=== PATIENT | female | born 1940 | race Caucasian/White ===

== ENCOUNTER → 2016-09-01 | Outpatient (CLI) | payer MEDICARE ==
[~2016-09-01] MED LIST: ACCU CHEK; ADVAIR 2501 DISK W/D PO; AMARYL1 MG PO; AMLODIPINE BESYL5 MG PO; CARVEDILOL6.25 MG PO; COUMADIN5 MG PO; LIPITOR80 MG PO; LOSARTAN POTASS50 MG PO; NEURONTIN100 MG PO; OMEPRAZOLE40 M1 PO; PAMELOR25 M1 PO; PERCOCET 5-3251 TAB PO; PREDNISONE5 MG PO; PROAIR RESPICL90 MCG INH; PROVENTIL INH0.5 ML NEB; SERTRALINE HCL50 M1 PO; SYNTHROID125 PO; VITAMIN B122500 MCG PO; VITAMIN D2000 UNIT PO; WELCHOL625 M1 PO; ZYLOPRIM100 MG PO
--- NOTE | ~2016-09-01 | EKG ---
PATIENT: CAESAR TRINIDAD UNIT #: [id number] Ventricular Rate: 87 BPM Atrial Rate: 87 BPM P-R Interval: 186 ms QRS Duration: 84 ms Q-T Interval: 346 ms QTC Calculation(Bezet): 416 ms P Orlando: 32 degrees Calculated R Orlando: -22 degrees Calculated T Orlando: 45 degrees Diagnosis Line: Normal sinus rhythm Diagnosis Line: Normal ECG Diagnosis Line: No previous ECGs available Diagnosis Line: Confirmed by FRANK JULIAN MD ([id number]) on 09/01/2016 Diagnosis Line: 5:48:03 PM INTERPRETING MD: IESHA MANDEL
--- NOTE | ~2016-09-01 | CO ---
Unit #: [id number] #: [id number] Patient: CAESAR TRINIDAD [id number] [address] [place], [place] [address] [id number] MR#: [id number] NAME: CAESAR TRINIDAD ROOM: Age: 75 Sex: F Admission Date: 09/01/2016 : 1940 Attending Physician: William Reinoso M.D. Primary Care Physician: Damion Harding Jr., M.D. CONSULTATION REPORT REASON FOR CONSULTATION Preprocedure medical evaluation prior to left reverse total shoulder arthroplasty scheduled by Dr. William Reinoso for 09/08/2016. HISTORY OF PRESENT ILLNESS The patient is a 75-year-old female who presents to preprocedural screening for the reasons indicated above. She complains of left shoulder pain but has no other complaints at the time of this interview. She denies chest, arm, neck, jaw, pain or pressure, shortness of air, dyspnea on exertion, orthopnea, and paroxysmal nocturnal dyspnea. She does sleep with her head elevated on pillows secondary to a history of brain surgery, in order to keep "fluid" from building up. She has no syncope, presyncope, lightheadedness. She states that she does sometimes experience dizziness intermittently but not associated with any particular factors. She denies palpitations. She denies history of myocardial infarction, congestive heart failure, CVA, TIA, diabetes mellitus on insulin, and kidney disease. She is able to climb a flight of stairs without chest pain, although she does experience mild shortness of air. She has no other complaints at the time of this interview. PAST MEDICAL HISTORY 1. Osteoarthritis. 2. Morbid obesity. BMI 36. 3. Risk factors for obstructive sleep apnea. 4. History of colon cancer. 5. History of pituitary tumor. 6. History of Boeck sarcoidism. 7. Type 2 diabetes mellitus, noninsulin dependent. 8. Anxiety and depression. 9. History of dysphagia established with Dr. Solis. 10. Hypothyroidism. 11. History of DVT in bilateral lower extremities, neither associated with a postop course. 12. Sciatica. 13. Restless leg syndrome. 14. History of pancreatitis. 15. History of kidney stones. PAST SURGICAL HISTORY 1. Right reverse shoulder replacement. 2. Colon resection for cancer. 3. Hysterectomy. 4. Lap cholecystectomy. 5. Colonoscopy with polyp removal. Unit #: [id number] #: [id number] Patient: CAESAR TRINIDAD 6. Brain surgery x2 for pituitary gland tumor. 7. Surgery for kidney stones removal. 8. Surgery for Boeck sarcoidism. 9. Right cataract extraction. 10. Bilateral ear tube placement. 11. Patient denies a personal and family history of complications to anesthesia. ALLERGIES Penicillin causes a rash, morphine hallucinations, hydrocodone temporary paralysis from the neck down. CURRENT MEDICATIONS 1. Advair 250/50 one inhalation p.o. b.i.d. p.r.n. shortness of air. 2. Proventil mini-neb two to three times a day p.r.n. shortness of air. 3. Zyloprim 100 mg p.o. b.i.d. 4. Amlodipine besylate 5 mg p.o. every morning. 5. Lipitor 80 mg p.o. every morning. 6. Carvedilol 6.25 mg p.o. b.i.d. 7. Neurontin 200 mg p.o. b.i.d. 8. Amaryl 1 mg p.o. every morning. 9. Synthroid 0.125 mg p.o. every morning. 10. Losartan potassium 50 mg p.o. every morning. 11. Pamelor 25 mg p.o. every morning. 12. Omeprazole 40 mg p.o. b.i.d. 13. Prednisone 5 mg p.o. twice daily, 5 mg in the morning and 2.5 mg at night. 14. ProAir RespiClick two puffs inhaled q.4 hours as needed for shortness of air. 15. Sertraline HCL 50 mg p.o. every morning. 16. Coumadin 5 mg p.o. daily. 17. Welchol 1 tab p.o. b.i.d. 18. Vitamin B12 one tab p.o. b.i.d. 19. Vitamin D 2000 units p.o. every morning. SOCIAL HISTORY Denies tobacco use, ETOH use, and illicit drug use. REVIEW OF SYSTEMS Ten point review of systems is conducted and negative except as indicated under history of present illness above. PHYSICAL EXAMINATION GENERAL: 75-year-old, obese, female, awake, alert, in no acute distress. VITAL SIGNS: Temperature 96.5, thyroid 97, respiratory rate 16, blood pressure 152/103 with recheck 143/91. Oxygen saturation 97% on room air. HEENT: Atraumatic and normocephalic. Sclerae anicteric. No discharge from eyes, ears, or nares. LUNGS: No preauricular, postauricular, tonsillar, submental, anterior, or posterior cervical adenopathy. ENDOCRINE: No thyromegaly, thyroid nodules, or tenderness. RESPIRATORY: Clear to auscultation all silva bilaterally without wheezes, rhonchi, or rales. CARDIOVASCULAR: S1 and S2, regular rate and rhythm, without murmur or rub. GASTROINTESTINAL: Obese, bowel sounds positive x4. Soft, nontender, and nondistended. EXTREMITIES: No edema, cyanosis, or clubbing. Unit #: [id number] #: [id number] Patient: CAESAR TRINIADD MUSCULOSKELETAL: Strength 5/5 all extremities bilaterally to flexion and extension. NEUROLOGIC: Alert and oriented x3. Speech clear. Cranial nerves II-XII grossly intact. Moves all extremities, follows commands. DIAGNOSTIC STUDIES LABORATORY STUDIES: WBC 8.0, hemoglobin 13.7, hematocrit 42.3, and platelet count 172,000. Sodium 139, potassium 4.3, chloride 110, CO2 22, glucose 149, BUN 20, creatinine 1.0, calcium 9.9, AST 45, ALT 62, alkaline phosphatase 62, bilirubin total 0.6, total protein 6.5, and albumin 3.9. PT 19.8, INR 1.8. Urinalysis - leukocyte esterase 2+, nitrate negative, protein trace, WBCs 200 to 300, bacteria 1+, and squamous cells moderate. Urine culture and sensitivity pending at this time, possible contaminated specimen. TSH and free T4 pending at this time. Type A positive antibody screen negative. MRSA nasal swab report pending at this time. IMAGING STUDIES: Two view chest x-ray are pending at this time. CARDIOLOGY STUDIES: Twelve lead EKG - normal sinus rhythm, normal ECG. (1) report pending at this time. IMPRESSION The patient is a 75-year-old female who presents to preprocedural screening for: 1. Preoperative medical evaluation prior to left reversal total shoulder arthroplasty as scheduled above. Patient's Powers revised cardiac risk index based on information known today and the patient's medical history is 0.4%. This represents the patient's perioperative risk of cardiac , fatal or nonfatal myocardial infarction, cardiopulmonary arrest, arrhythmia and/or pulmonary edema. This has been discussed in detail with the patient. She wishes to proceed with surgery as scheduled at this time. 2. Morbid obesity, BMI 36. 3. Risk factors for obstructive sleep apnea per STOP-BANG protocol. Patient will be placed on SHITAL protocol postoperatively. 4. History of colon cancer, status post colon resection. 5. History of pituitary tumor. 6. History of Boeck sarcoidism. 7. Diabetes mellitus 2 on oral hypoglycemics. Will monitor Accu-Cheks and place on CCD and sliding scale insulin protocol. Will resume home meds based on hospital policy and patient's oral intake. 8. Anxiety and depression stable. Continue home dose of Zoloft. 9. History of dysphagia. Again patient is established with Dr. Solis. She denies coughing, and chocking with food or fluids. A bedside swallow will be performed upon admission. 10. Hypothyroidism, continue current dose of Synthroid and will check TSH and free T4 in lab today. Adjustments pending results. 11. History of DVT in both lower extremities. Patient states neither of these was associated with the postop course. DVT prophylaxis perioperatively will be per order of Dr. Reinoso. 12. Sciatica. 13. Restless leg syndrome. 14. Mild elevation of liver function test. 15. Pyuria/bacteria. Patient is completely asymptomatic. Will await urine culture and sensitivity results and call the patient results. Will contact the patient and call prescription to patient's pharmacy if indicated based on culture and sensitivity report. Unit #: [id number] #: [id number] Patient: CAESAR TRINIDAD Thank you for allowing us to participate in the care of this patient. Will gladly follow patient for postop medical management pending order of Dr. Reinoso. Dictated by... Darrel Montaño M.D. RLC/ts TD: 09/02/2016 08:22 JOB #: [id number] CONSULTATION REPORT X Monica Richter APRN CONSULTATION REPORT
[2016-09-01 13:47] LABS: HEMATOCRIT 42.3 % (35.0-45.0); HEMOGLOBIN 13.7 gm/dL (12.0-16.0); MEAN CELL VOLUME 89.5 FL (83-96); MEAN CORPUSCULAR HGB CONC 32.4 g/dL (30-36); MEAN PLATELET VOLUME 7.8 FL (6.5-11.5); RED BLOOD COUNT 4.72 X10e (3.90-5.30); RED CELL DISTRIBUTION WIDTH 17.6 % (11.0-15.5)
[2016-09-01 14:01] LABS: INR 1.8; PROTHROMBIN TIME (PATIENT) 19.8 SECONDS (9.6-11.5)
[2016-09-01 14:30] LABS: URINE APPEARANCE CLOUDY; URINE BILIRUBIN NEG (NEG); URINE BLOOD TRACE (NEG); URINE COLOR DK YELLOW; URINE GLUCOSE NEG (NEG); URINE KETONE TRACE (NEG); URINE LEUKOCYTE ESTERASE 2+ (NEG); URINE NITRATE NEG (NEG); URINE PROTEIN TRACE (NEG); URINE SPECIFIC GRAVITY 1.024 (1.003-1.035)
[2016-09-01 14:31] LABS: URINE SOURCE CLEAN CATCH
[2016-09-01 14:33] LABS: CULTURE INDICATED? YES; URINE BACTERIA AUWI 1+ (NEGATIVE); URINE SQUAMOUS EPITHELIAL CELL MOD /[HPF]; UWBCS1 AUWI 200-300 (0-5)
[2016-09-01 14:43] LABS: URINE CRYSTALS CALCIUM OXALATE /[HPF]
[2016-09-01 14:44] LABS: ALBUMIN SERUM 3.9 g/dL (3.5-5.0); BILIRUBIN,TOTAL 0.6 mg/dL (0.2-2.0); CALCIUM SERUM 9.9 mg/dL (8.4-10.2); GLOM FILT RATE Estimated 57.4 mL/min (>60); POTASSIUM 4.3 mmol/L (3.5-5.1); PROTEIN TOTAL SERUM 6.5 g/dL (6.0-8.3)
[2016-09-01 16:31] LABS: THYROID STIMULATING HORMONE 1.95 uIU/ml (0.34-5.60)
[2016-09-01 16:38] LABS: FREE THYROXIN (T4) 1.12 ng/dL (0.58-1.64)
== END | disposition home or self-care (01) ==
LOC: CAMB 13:14
PROVIDERS: Orthopaedic Surgery
DX: Z01.818 Encounter for other preprocedural examination (principal); M19.012 Primary osteoarthritis, left shoulder; I10 Essential (primary) hypertension; E11.9 Type 2 diabetes mellitus without complications; E66.01 Morbid (severe) obesity due to excess calories; Z88.0 Allergy status to penicillin; Z88.5 Allergy status to narcotic agent; Z88.8 Allergy status to other drugs, medicaments and biological substances
CPT/HCPCS: 36415; 71020; 73030; 80053; 81003; 84439; 84443; 85027; 85610; 86850; 86900; 86901; 87070; 87086; 87088; 87186; 93005

== ENCOUNTER 2016-09-08 05:43 | Inpatient (IN) | payer MEDICARE ==
--- NOTE | ~2016-09-08 | CR229 ---
[facility] A Service of [facility] & [facility] RADIOLOGY TEXT RESULTS PATIENT: CAESAR TRINIDAD LOCATION: [facility] : 40 UNIT #: [id number] AGE: [address]: William Reinoso MD SEX: F ORDER DR: [id number] [facility] [address] [place], [place] [address] [id number] MR#: [id number] Acc #: [id number] NAME: CAESAR TRINIDAD : 1940 SEX: F STUDY DATE/TIME: 09/01/2016 16:06 UNIT: [facility] ROOM: STUDY DESCRIPTION: CR Shoulder Min 2 View Lt Attending Physician: William Reinoso M.D. Ordering Physician: William Reinoso M.D. Primary Care Physician: Justo Messina M.D. MEDICAL IMAGING REPORT This report is preliminary unless electronic signature is present EXAM Left shoulder, 3 views. DATE OF EXAM 09/01/2016 INDICATION 75-year-old female with preop left shoulder arthroplasty. COMPARISON No comparisons. FINDINGS There is narrowing of the subacromial space and also narrowing of the AC joint. No fracture or dislocation. IMPRESSION Degenerative changes as described. Dictated by... Álvaro Maxwell M.D. THIS IS AN ELECTRONICALLY VERIFIED REPORT Álvaro Maxwell M.D. at 09/02/2016 5:07 PM RADHA/tahmina TD: 09/01/2016 23:42 JOB #: [id number] MEDICAL IMAGING REPORT COPY
--- NOTE | ~2016-09-08 | CR229 ---
[facility] A Service of [facility] RADIOLOGY TEXT RESULTS PATIENT: CAESAR TRINIDAD LOCATION: [facility] [id number] : 40 UNIT #: [id number] AGE: [address]: William Reinoso MD SEX: F ORDER DR: [id number] [facility] [address] [place], [place] [address] [id number] I MR#: [id number] Acc #: [id number] NAME: CAESAR TRINIDAD : 1940 SEX: F STUDY DATE/TIME: 09/08/2016 11:12 UNIT: [facility] ROOM: [facility] STUDY DESCRIPTION: CR Shoulder Min 2 View Lt Attending Physician: William Reinoso M.D. Ordering Physician: William Reinoso M.D. Primary Care Physician: Generic Doctor Not In System MEDICAL IMAGING REPORT This report is preliminary unless electronic signature is present EXAM Left shoulder 2 views HISTORY Status post left shoulder total arthroplasty. FINDINGS Two views show changes of left shoulder total arthroplasty. Dictated by... Bimal Johnson M.D. THIS IS AN ELECTRONICALLY VERIFIED REPORT Bmial Johnson M.D. at 09/09/2016 4:13 PM DANICA/alber TD: 09/08/2016 15:58 JOB #: [id number] MEDICAL IMAGING REPORT COPY
--- NOTE | ~2016-09-08 | DS ---
Unit #: [id number] #: [id number] Patient: CAESAR TRINIDAD [id number] [facility]. [place], [place] [address] [id number] I MR#: [id number] NAME: CAESAR TRINIDAD ROOM: [facility] Age: 75 Sex: F Admission Date: 09/08/2016 : 1940 Discharge Date: Attending Physician: William Reinoso M.D. DISCHARGE SUMMARY PROCEDURES IN HOSPITAL Left total shoulder. HOSPITAL COURSE The patient was admitted on 09/08/2016, taken to the operating room, where she underwent a left total shoulder replacement by Dr. Reinoso. Postoperatively, the first day, she had a fair amount of pain and was unable to move well this morning. She states that she feels much better and soreness is much improved. She is on Percocet for pain, but she has not ambulated much yet. We will get her up with physical therapy this morning and if she does well with ambulating, she can be discharged home. She will follow up with Dr. Reinoso in 2 weeks in the office. Her condition on discharge is improved. Her medications are her routine home medicines plus her Percocet for pain. ADDENDUM Her hemoglobin on the day of discharge is 10.5. Dictated by... Collins Davis/joyce TD: 09/10/2016 11:21 JOB #: [id number] DISCHARGE SUMMARY X Giorgio Dunn MD X DISCHARGE SUMMARY
--- NOTE | ~2016-09-08 | CR63 ---
[facility] A Service of [facility] & [facility] RADIOLOGY TEXT RESULTS PATIENT: CAESAR TRINIDAD LOCATION: [facility] : 40 UNIT #: [id number] AGE: [address]: William Reinoso MD SEX: F ORDER DR: [id number] [facility] [address] [place] [address] [place], [place] [address] [id number] P MR#: [id number] Acc #: [id number] NAME: CAESAR TRINIDAD : 1940 SEX: F STUDY DATE/TIME: 09/01/2016 16:07 UNIT: [facility] ROOM: STUDY DESCRIPTION: CR Chest 2 View Attending Physician: William Reinoso M.D. Ordering Physician: William Reinoso M.D. Primary Care Physician: Justo Messina M.D. MEDICAL IMAGING REPORT This report is preliminary unless electronic signature is present EXAM PA and lateral chest. DATE OF EXAM 09/01/2016 INDICATIONS 75-year-old female preop chest x-ray for left shoulder surgery. COMPARISON No comparisons. FINDINGS Lungs well expanded. No acute infiltrate. Heart size upper normal. Atherosclerotic calcification of the aorta. Right shoulder arthroplasty. IMPRESSION No active disease. Dictated by... Álvaro Maxwell M.D. THIS IS AN ELECTRONICALLY VERIFIED REPORT Álvaro Maxwell M.D. at 09/02/2016 5:07 PM RADHA/tahmina TD: 09/01/2016 23:37 JOB #: [id number] MEDICAL IMAGING REPORT COPY
--- NOTE | ~2016-09-08 | OR ---
Unit #: [id number] #: [id number] Patient: CAESAR TRINIDAD [id number] [facility]. [place], [place] [address] [id number] I MR#: [id number] NAME: CAESAR TRINIDAD ROOM: [facility] Date of Procedure: 09/08/2016 Admission Date: 09/08/2016 Surgeon: William Reinoso M.D. : 1940 Attending Physician: William Reinoso M.D. OPERATIVE REPORT PREOPERATIVE DIAGNOSIS Left shoulder rotator cuff arthropathy. POSTOPERATIVE DIAGNOSIS Left shoulder rotator cuff arthropathy. PROCEDURE PERFORMED Left reverse total shoulder arthroplasty. VOCAL TEACHER Jacob Nation CFA. ANESTHESIA General endotracheal. COMPLICATIONS None. SPECIMENS None. DRAINS None. SURGICAL IMPLANTS 1. Jordyn reverse total shoulder arthroplasty system. Size 10 humeral stem with Palacos R+G cement. 2. Standard 15 mm base plate with 36 mm glenosphere. 3. +3 mm polyethylene insert. INDICATIONS FOR PROCEDURE Ms. Trinidad is a 75-year-old female with left shoulder rotator cuff arthropathy. 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 The patient failed to respond to conservative treatment. She has a history of a right reverse total shoulder arthroplasty. She has done well with this. She is interested in the same on the left side. Due to failure of conservative treatment and degree of changes on x-ray and clinical exam, it was felt she would benefit from a reverse total shoulder arthroplasty. Risks, benefits, and alternatives of surgery were discussed with the patient. Informed consent was obtained. Risks include, but not limited to, infection, bleeding, nerve injury, blood clots, risks associated with anesthesia, need for further surgery, and possibly . Unit #: [id number] #: [id number] Patient: CAESAR TRINIDAD DESCRIPTION OF PROCEDURE On 09/08/2016, the patient was seen in the preoperative holding area, where her surgical site was marked. Preoperative antibiotics were received. H and P and consent updated. Preoperative block was performed. The patient was subsequently taken to the operating room and placed on the operating room table, provided general anesthesia. She was then carefully moved into the beach chair position. Left upper extremity was prepped and draped in typical sterile fashion. Time-out was performed confirming the correct surgical site and procedure. Standard deltopectoral approach was performed for the left shoulder. Cephalic vein was taken with the deltoid muscle. Clavipectoral fascia released. Retractors were placed. The subscapularis was released off the lesser tuberosity and tacked. Biceps tenotomy was performed. Full-thickness cartilage loss noted and the shoulder was externally rotated and dislocated. Also of note, full-thickness superior rotator cuff tear noted with high-riding humerus. At this point, starting reamer was placed down the canal of the humerus. This was sequentially taken up to 11 mm. Careful attention to eversion noted. The humeral head cut was made. The conical reamer was then used and a trial was placed. Retractors were placed around the glenoid and exposure noted. The cartilage was worn down as well. The labrum was excised. Starting pin placed with 10-degree superior angulation, so that there would be a 10-degree inferior tilt of the baseplate. The reamer placed over this. This was taken down to bleeding trabecular bone. The baseplate was placed. Two screws were placed with excellent purchase. Locking caps placed. The baseplate was stable. Next, the glenosphere was placed in standard fashion. It was checked circumferentially and noted to be locked. At this point, the shoulder again was externally rotated and the trial was placed. It was reduced. It was noted to be stable. At this point, the final implant was placed. The canal was prepared for cement. Restrictor placed as brush followed by irrigated and suction dried. Cement mixed on the back table and injected into the canal. The stem was placed with careful attention to retroversion. Excess cement removed. After 12 minutes, the cement had hardened. The 0 mm insert was placed and the shoulder was reduced again. This was then increased to a +3 mm. This was felt to be more stable and provided full range of motion. Appropriate tension on the conjoined tendon. The final poly was placed and malleted into position. It was stable. The subscapularis was then repaired back to the tuberosity through a hole in the stem. It was tied down. 3 L normal saline with bacitracin pulsed through the wound. Hemostasis was noted. Deltopectoral interval repaired with 0 Vicryl, followed by 2-0 Vicryl for subcutaneous tissues and a 3-0 Monocryl subcuticular stitch for skin. Dermabond, Telfa, and Tegaderm were placed. A sling immobilizer was placed. The patient was subsequently awakened from general anesthesia in stable condition and taken to PACU postoperatively. POSTOPERATIVE PLAN The patient will be admitted overnight. She will be on 24-hour antibiotic protocol. She will be on Lovenox while in the hospital. Restarted on her Coumadin. No complications were encountered during the surgical procedure. Dictated by... William Reinoso M.D. PANCHITO/joyce Unit #: [id number] #: [id number] Patient: CAESAR TRINIDAD TD: 09/09/2016 20:51 JOB #: [id number] OPERATIVE REPORT X X PROCEDURE OPERATIVE NOTE
[~2016-09-08 05:43] MED LIST changes: -ACCU CHEK; -PERCOCET 5-3251 TAB PO
[2016-09-08] MEDS ORDERED: WELCHOL625 M1 PO (06:25)
[2016-09-08 07:15] LABS: URINE APPEARANCE TURBID; URINE BILIRUBIN NEG (NEG); URINE BLOOD 1+ (NEG); URINE COLOR YELLOW; URINE GLUCOSE NEG (NEG); URINE KETONE TRACE (NEG); URINE LEUKOCYTE ESTERASE 3+ (NEG); URINE NITRATE NEG (NEG); URINE PROTEIN TRACE (NEG); URINE SPECIFIC GRAVITY 1.026 (1.003-1.035); URINE UROBILINOGEN 0.2 MG/DL (NEG)
[2016-09-08 07:17] LABS: CULTURE INDICATED? YES; URINE BACTERIA AUWI NEG (NEGATIVE); URINE SQUAMOUS EPITHELIAL CELL MOD /[HPF]; UWBCS1 AUWI INNUM (0-5)
[2016-09-08 07:25] LABS: U HYALINE CASTS AUWI 0-2 /[LPF]; URINE CRYSTALS CALCIUM OXALATE /[HPF]
[2016-09-08 07:27] LABS: INR 1.2; PROTHROMBIN TIME (PATIENT) 12.7 SECONDS (9.6-11.5)
[2016-09-09 03:06] LABS: HEMATOCRIT 32.8 % (35.0-45.0); HEMOGLOBIN 10.6 gm/dL (12.0-16.0); MEAN CELL VOLUME 91.3 FL (83-96); MEAN CORPUSCULAR HEMOGLOBIN 29.7 PG (28-34); MEAN CORPUSCULAR HGB CONC 32.5 g/dL (30-36); MEAN PLATELET VOLUME 8.3 FL (6.5-11.5); RED BLOOD COUNT 3.59 X10e (3.90-5.30); RED CELL DISTRIBUTION WIDTH 16.9 % (11.0-15.5); WHITE BLOOD COUNT 9.6 X10e3 (4.0-10.5)
[2016-09-09 03:20] LABS: INR 1.2; PROTHROMBIN TIME (PATIENT) 12.6 SECONDS (9.6-11.5)
[2016-09-09 03:32] LABS: BLOOD UREA NITROGEN 27 mg/dL (9-23); CALCIUM SERUM 8.9 mg/dL (8.4-10.2); CARBON DIOXIDE 22 mmol/L (22-31); CHLORIDE 108 mmol/L (100-111); CREATININE SERUM 0.9 mg/dL (0.6-1.4); GLOM FILT RATE Estimated ABOVE60 mL/min (>60); GLUCOSE FASTING 138 mg/dL (70-110); POTASSIUM 4.1 mmol/L (3.5-5.1); SODIUM 135 mmol/L (135-145)
[2016-09-10 03:44] LABS: HEMATOCRIT 31.8 % (35.0-45.0); HEMOGLOBIN 10.5 gm/dL (12.0-16.0); MEAN CELL VOLUME 90.2 FL (83-96); MEAN CORPUSCULAR HEMOGLOBIN 29.7 PG (28-34); MEAN PLATELET VOLUME 7.9 FL (6.5-11.5); RED BLOOD COUNT 3.53 X10e (3.90-5.30); RED CELL DISTRIBUTION WIDTH 17.3 % (11.0-15.5); WHITE BLOOD COUNT 8.8 X10e3 (4.0-10.5)
[2016-09-10 03:58] LABS: INR 1.8
[2016-09-10 04:05] LABS: PROTHROMBIN TIME (PATIENT) 19.8 SECONDS (9.6-11.5)
[2016-09-10 04:19] LABS: BLOOD UREA NITROGEN 19 mg/dL (9-23); BUN/CREATININE RATIO 23.75; CALCIUM SERUM 9.6 mg/dL (8.4-10.2); CARBON DIOXIDE 26 mmol/L (22-31); CHLORIDE 106 mmol/L (100-111); CREATININE SERUM 0.8 mg/dL (0.6-1.4); GLOM FILT RATE Estimated ABOVE60 mL/min (>60); GLUCOSE FASTING 133 mg/dL (70-110); POTASSIUM 4.4 mmol/L (3.5-5.1); SODIUM 133 mmol/L (135-145)
[2016-09-10] MEDS ORDERED: PERCOCET 5-3251 TAB PO (12:51)
[2016-09-10] MEDS ORDERED: ACCU CHEK (12:54)
== END 2016-09-10 19:20 | disposition home or self-care (01) | DRG 483 ==
LOC: CSUR 05:43 → CPACUOF 10:00 → C4B 12:13
PROVIDERS: Orthopaedic Surgery
PROC: 0RRK00Z Replacement of Left Shoulder Joint with Reverse Ball and Socket Synthetic Substitute, Open Approach (ICD-10-PCS; principal; 2016-09-08 07:30)
DX: M19.012 Primary osteoarthritis, left shoulder (principal); G62.9 Polyneuropathy, unspecified; J44.9 Chronic obstructive pulmonary disease, unspecified; E66.01 Morbid (severe) obesity due to excess calories; M87.812 Other osteonecrosis, left shoulder; Z96.611 Presence of right artificial shoulder joint; F90.9 Attention-deficit hyperactivity disorder, unspecified type; K21.9 Gastro-esophageal reflux disease without esophagitis; R41.9 Unspecified symptoms and signs involving cognitive functions and awareness; I10 Essential (primary) hypertension; M19.90 Unspecified osteoarthritis, unspecified site; E78.5 Hyperlipidemia, unspecified; E03.9 Hypothyroidism, unspecified; F32.9 Major depressive disorder, single episode, unspecified; M54.31 Sciatica, right side; E55.9 Vitamin D deficiency, unspecified; E11.9 Type 2 diabetes mellitus without complications; Z82.3 Family history of stroke; Z83.3 Family history of diabetes mellitus; Z80.9 Family history of malignant neoplasm, unspecified; Z68.36 Body mass index [BMI] 36.0-36.9, adult; Z85.038 Personal history of other malignant neoplasm of large intestine
CPT/HCPCS: 71020; 73030; 80048; 81003; 82947; 85027; 85610; 87086; 94760; 94761; 97110; 97116; 97163; 97530; C1713; C1776; G8978-GP; G8979-GP; J0330; J1170; J1650; J1720; J2250; J2370; J2405; J2710; J2795; J3010; J3370

== ENCOUNTER 2016-09-16 15:25 | Emergency (ER) | payer MEDICARE ==
--- NOTE | ~2016-09-16 | CT71 ---
[facility] A Service of [facility] & [facility] & [facility] RADIOLOGY TEXT RESULTS PATIENT: CAESAR TRINIDAD LOCATION: [facility] : 40 UNIT #: [id number] AGE: [address]: Sal Loco MD SEX: F ORDER DR: [id number] [facility] [address] [place], [place] [address] [id number] E MR#: [id number] Acc #: [id number] NAME: CAESAR TRINIDAD : 1940 SEX: F STUDY DATE/TIME: 09/16/2016 14:48 UNIT: [facility] ROOM: STUDY DESCRIPTION: CT Head Wo Contrast Attending Physician: Garrett Loco M.D. Ordering Physician: Ed Mccarthy M.D. Primary Care Physician: Damion Harding Jr., M.D. MEDICAL IMAGING REPORT This report is preliminary unless electronic signature is present EXAM CT brain without contrast media 09/16/2016 HISTORY Fell 09/15/2016 hit head. Pain left side of head and neck. Trauma on 09/15/2016, on Coumadin. TECHNIQUE Transaxial imaging of the brain was performed without contrast media. This CT exam was performed with one or more of the following radiation dose reduction techniques: automatic exposure control, adjustment of mA and/or kV according to patient size, and iterative reconstruction. COMPARISON STUDIES There are no prior head CTs for comparison. FINDINGS Postoperative changes of right frontal craniotomy are present with an area encephalomalacia in the right frontal lobe. There is generalized enlargement of the ventricles and CSF-containing spaces with decreased attenuation in the periventricular white matter. Small lacunar infarction seen in the posterior limb of the internal capsule on the left. No intra or extraaxial mass lesions are seen. There is atherosclerotic disease in both carotid siphons and both vertebrals. No acute intracranial findings are seen. No fractures are present. There is no evidence of hemorrhage. CONCLUSION 1. Generalized atrophy with chronic periventricular ischemic changes. 2. Tiny lacunar infarction posterior limb of the internal capsule on the left. 3. Right frontal craniotomy with subjacent right frontal encephalomalacia. [facility] A Service of [facility] & [facility] & [facility] RADIOLOGY TEXT RESULTS PATIENT: CAESAR TRINIDAD LOCATION: [facility] : 40 UNIT #: [id number] AGE: [address]: Sal Loco MD SEX: F ORDER DR: 4. No acute intracranial findings. Dictated by... Jacob Snow M.D. THIS IS AN ELECTRONICALLY VERIFIED REPORT Jacob Snow M.D. at 09/19/2016 2:44 PM MAHAD/alma delia TD: 09/16/2016 16:42 JOB #: [id number] MEDICAL IMAGING REPORT Page 1 of 1 COPY
--- NOTE | ~2016-09-16 | CR206 ---
[facility] A Service of [facility] & [facility] RADIOLOGY TEXT RESULTS PATIENT: CAESAR TRINIDAD LOCATION: [facility] : 40 UNIT #: [id number] AGE: [address]: Sal Loco MD SEX: F ORDER DR: [id number] [facility] [address] [place], [place] [address] [id number] E MR#: [id number] Acc #: [id number] NAME: CAESAR TRINIDAD : 1940 SEX: F STUDY DATE/TIME: 09/16/2016 14:15 UNIT: [facility] ROOM: STUDY DESCRIPTION: CR Pelvis 1 or 2 Views Attending Physician: Garrett Loco M.D. Ordering Physician: Ed Mccarthy M.D. Primary Care Physician: Damion Harding Jr., M.D. MEDICAL IMAGING REPORT This report is preliminary unless electronic signature is present EXAM AP pelvis 09/16/2016 HISTORY Bilateral hip pelvic pain over the last 1 week. Multiple falls. An AP view of the bony pelvis obtained. FINDINGS The bony elements are intact and in normal aligned with no fractures identified. CONCLUSION Negative. Dictated by... Jacob Snow M.D. THIS IS AN ELECTRONICALLY VERIFIED REPORT Jacob Snow M.D. at 09/19/2016 2:44 PM MAHAD/alma delia TD: 09/16/2016 16:12 JOB #: [id number] MEDICAL IMAGING REPORT Page 1 of 1 COPY
--- NOTE | ~2016-09-16 | CR243 ---
[facility] A Service of [facility] RADIOLOGY TEXT RESULTS PATIENT: CAESAR TRINIDAD LOCATION: [facility] : 40 UNIT #: [id number] AGE: [address]: Sal Loco MD SEX: F ORDER DR: [id number] [facility] [address] [place], [place] [address] [id number] E MR#: [id number] Acc #: [id number] NAME: CAESAR TRINIDAD : 1940 SEX: F STUDY DATE/TIME: 09/16/2016 14:16 UNIT: [facility] ROOM: STUDY DESCRIPTION: CR Thoracic Spine 3 Views Attending Physician: Garrett Loco M.D. Ordering Physician: Ed Mccarthy M.D. Primary Care Physician: Damion Harding Jr., M.D. MEDICAL IMAGING REPORT This report is preliminary unless electronic signature is present EXAM Thoracic spine, 09/16/2016. HISTORY Multiple falls over the last week. Back pain. FINDINGS AP, lateral, and swimmer's views are submitted. Thoracic alignment is normal. There is evidence of degenerative disc disease in the thoracic spine. Vertebral body height and alignment is normal. CONCLUSION Thoracic spondylosis with no fractures or subluxation. Dictated by... Jacob Snow M.D. THIS IS AN ELECTRONICALLY VERIFIED REPORT Jacob Snow M.D. at 09/19/2016 2:44 PM MAHAD/sloaen TD: 09/16/2016 16:19 JOB #: [id number] MEDICAL IMAGING REPORT Page 1 of 1 COPY
--- NOTE | ~2016-09-16 | CT52 ---
[facility] A Service of [facility] RADIOLOGY TEXT RESULTS PATIENT: CAESAR TRINIDAD LOCATION: [facility] : 40 UNIT #: [id number] AGE: [address]: Sal Loco MD SEX: F ORDER DR: [id number] [facility] [address] [place], [place] [address] [id number] E MR#: [id number] Acc #: [id number] NAME: CAESAR TRINIDAD : 1940 SEX: F STUDY DATE/TIME: 09/16/2016 14:48 UNIT: [facility] ROOM: STUDY DESCRIPTION: CT Cervical Spine Wo Cont Attending Physician: Garrett Loco M.D. Ordering Physician: Ed Mccarthy M.D. Primary Care Physician: Damion Harding Jr., M.D. MEDICAL IMAGING REPORT This report is preliminary unless electronic signature is present EXAM Cervical spine CT, 09/16/2016. HISTORY Patient had a fall yesterday and hit head. Patient has left-sided head and neck pain since that time. TECHNIQUE Axial images were obtained through the cervical spine, without contrast. Multiplanar reformats were obtained. This CT exam was performed with one or more of the following radiation dose reduction techniques: automatic exposure control, adjustment of mA and/or kV according to patient size, and iterative reconstruction. COMPARISONS No comparison. 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 However, no acute cervical spine fractures are seen. There is subtle anterolisthesis of C5 on C6, which is presumably degenerative. There may be minimal anterolisthesis of C6 on C7. There is advanced multilevel degenerative facet arthropathy. There is degenerative disc space narrowing at least at C5-C6 and C6-C7, and there are probably mild broad-based disc osteophyte complexes at these levels. IMPRESSION Technically limited exam due to streak artifact, but there are no acute fractures. There is multilevel degenerative facet arthropathy and degenerative disc disease. [facility] A Service of [facility] RADIOLOGY TEXT RESULTS PATIENT: CAESAR TRINIDAD LOCATION: [facility] : 40 UNIT #: [id number] AGE: [address]: Sal Loco MD SEX: F ORDER DR: Dictated by... Mickey Hunter Jr., M.D. THIS IS AN ELECTRONICALLY VERIFIED REPORT Mickey Hunter Jr., M.D. at 09/16/2016 9:28 PM JUSTIN/sloane TD: 09/16/2016 16:59 JOB #: [id number] MEDICAL IMAGING REPORT Page 1 of 1 COPY
--- NOTE | ~2016-09-16 | CR181 ---
[facility] A Service of [facility] RADIOLOGY TEXT RESULTS PATIENT: CAESAR TRINIDAD LOCATION: [facility] : 40 UNIT #: [id number] AGE: [address]: Sal Loco MD SEX: F ORDER DR: [id number] [facility] [address] [place], [place] [address] [id number] E MR#: [id number] Acc #: [id number] NAME: CAESAR TRINIDAD : 1940 SEX: F STUDY DATE/TIME: 09/16/2016 14:16 UNIT: [facility] ROOM: STUDY DESCRIPTION: CR Lumbar Spine 2 or 3 Views Attending Physician: Garrett Loco M.D. Ordering Physician: Ed Mccarthy M.D. Primary Care Physician: Damion Harding Jr., M.D. MEDICAL IMAGING REPORT This report is preliminary unless electronic signature is present EXAM Lumbosacral spine total of 3 views HISTORY Low back pain after multiple falls. FINDINGS AP lateral and spot views are submitted. Lumbar alignment is normal. Disc space and vertebral body height is maintained. No fractures are identified. There is some facet hypertrophic changes in the lower lumbar region. There are atherosclerotic calcifications in the aorta. CONCLUSION Facet degenerative changes otherwise negative. Dictated by... Jacob Snow M.D. THIS IS AN ELECTRONICALLY VERIFIED REPORT Jacob Snow M.D. at 09/19/2016 2:44 PM MAHAD/alber TD: 09/16/2016 16:13 JOB #: [id number] MEDICAL IMAGING REPORT Page 1 of 1 COPY
[2016-09-16 14:25] LABS: URINE SOURCE CLEAN CATCH
[2016-09-16 14:34] LABS: URINE APPEARANCE CLOUDY; URINE BILIRUBIN NEG (NEG); URINE BLOOD NEG (NEG); URINE COLOR YELLOW; URINE GLUCOSE NEG (NEG); URINE KETONE NEG (NEG); URINE LEUKOCYTE ESTERASE 3+ (NEG); URINE NITRATE NEG (NEG); URINE PH 5.5 (5-8); URINE PROTEIN NEG (NEG); URINE UROBILINOGEN 0.2 MG/DL (NEG)
[2016-09-16 14:37] LABS: CULTURE INDICATED? YES; URINE BACTERIA AUWI NEG (NEGATIVE); URINE SQUAMOUS EPITHELIAL CELL OCC /[HPF]; UWBCS1 AUWI 100-200 (0-5)
[2016-09-16 14:38] LABS: BASOPHIL% 0.4 % (0-2.5); EOSINOPHIL# 0.3 X10e3 (0-0.7); HEMATOCRIT 32.5 % (35.0-45.0); HEMOGLOBIN 10.6 gm/dL (12.0-16.0); LYMPHOCYTE% 11.3 % (17.0-45.0); MEAN CELL VOLUME 90.9 FL (83-96); MEAN CORPUSCULAR HEMOGLOBIN 29.7 PG (28-34); MEAN CORPUSCULAR HGB CONC 32.7 g/dL (30-36); MEAN PLATELET VOLUME 7.2 FL (6.5-11.5); MONOCYTE# 0.8 X10e3 (0-1.0); MONOCYTE% 8.9 % (3.0-12.0); NEUTROPHIL# 6.8 X10e3 (1.5-7.1); NEUTROPHIL% 76.4 % (40-75); PLATELET COUNT 238 X10e3 (140-420); RED BLOOD COUNT 3.57 X10e (3.90-5.30); RED CELL DISTRIBUTION WIDTH 17.4 % (11.0-15.5); WHITE BLOOD COUNT 8.8 X10e3 (4.0-10.5)
[2016-09-16 14:39] LABS: DIFF IND NO
[2016-09-16 14:48] LABS: INR 1.2; PARTIAL THROMBOPLASTIN TIME 24.1 SECONDS (23.5-31.3); PROTHROMBIN TIME (PATIENT) 12.7 SECONDS (9.6-11.5)
[2016-09-16 14:54] LABS: ALBUMIN SERUM 3.4 g/dL (3.5-5.0); BILIRUBIN, DIRECT 0.2 mg/dL (0.0-0.2); BILIRUBIN,INDIRECT 0.8 mg/dL (0.0-0.9); GLOM FILT RATE Estimated 55.1 mL/min (>60); POTASSIUM 4.1 mmol/L (3.5-5.1); PROTEIN TOTAL SERUM 6.4 g/dL (6.0-8.3)
[~2016-09-16 15:25] MED LIST changes: +ACCU CHEK; +PERCOCET 5-3251 TAB PO
[2016-09-16 15:26] LABS: POC - CKMB 3.1 ng/mL (0.0-7.9); POC - TROPONIN <0.05 ng/mL (<=0.05)
== END 2016-09-16 16:55 | disposition home or self-care (01) ==
LOC: CED 15:25
PROVIDERS: Emergency Medicine
DX: S09.90XA Unspecified injury of head, initial encounter (principal); I10 Essential (primary) hypertension; J44.9 Chronic obstructive pulmonary disease, unspecified; Z88.0 Allergy status to penicillin; Z88.5 Allergy status to narcotic agent; Z79.899 Other long term (current) drug therapy; W19.XXXA Unspecified fall, initial encounter; Y92.009 Unspecified place in unspecified non-institutional (private) residence as the place of occurrence of the external cause
CPT/HCPCS: 36415; 70450; 72072; 72100; 72125; 72170; 80048; 80076; 81003; 82553; 84484; 85025; 85610; 85730; 87086; 99284